=== PATIENT | male | born 1990 ===

== ENCOUNTER 2021-03-24 21:38 | Emergency (ER) | payer OTHER ==
[~2021-03-24] VITALS: Ht 167.6 cm; Wt 79.5 kg
[2021-03-24 23:07] VITALS: TEMP 97.8
[2021-03-25] MEDS ORDERED: PROTONIX 40MG T40 MG PO (00:58)
[2021-03-25 01:15] VITALS: BP 117/85; PULSE 68
== END 2021-03-25 01:15 | disposition home or self-care (01) ==
LOC: COL.ER 21:38
DX: K21.9 Gastro-esophageal reflux disease without esophagitis (principal); Z98.84 Bariatric surgery status